=== PATIENT | male | born 1985 | race Caucasian/White ===

== ENCOUNTER 2020-11-02 00:18 | Emergency (ER) | payer BC ==
[~2020-11-02] VITALS: Ht 182.9 cm; Wt 97.5 kg
[2020-11-02 00:18] VITALS: BP 147/96
[2020-11-02] MEDS ORDERED: CHLO25CA22 PO (00:40)
== END 2020-11-02 01:53 | disposition home or self-care (01) ==
LOC: ER 00:26
DX: F41.9 Anxiety disorder, unspecified (principal)